=== PATIENT | male | born 1965 | race African-American/Black ===

== ENCOUNTER 2016-08-21 14:57 | Emergency (ER) | payer MEDICAID ==
[~2016-08-21] VITALS: Ht 177.8 cm; Wt 80.0 kg
[2016-08-21 14:59] VITALS: BP 103/57
== END 2016-08-21 19:32 | disposition left against medical advice (07) ==
LOC: ER 14:58
DX: M79.604 Pain in right leg (principal); F12.10 Cannabis abuse, uncomplicated; F15.10 Other stimulant abuse, uncomplicated; Z88.6 Allergy status to analgesic agent

== ENCOUNTER 2016-09-25 01:12 | Emergency (ER) | payer MEDICAID ==
[~2016-09-25] VITALS: Ht 170.2 cm; Wt 68.0 kg
[2016-09-25] MEDS ORDERED: ONDANSETRON HCL 4MG/2ML VIAL IV STA (02:30)
[2016-09-25] MEDS ORDERED: SODIUM CHLORIDE 0.9% 1,000 ML IV ONE (02:30)
[2016-09-25] MEDS ORDERED: MORPHINE SULFATE 2 MG/ML CPJ (NOT FOR IM USE) IV ONE (02:30)
[2016-09-25 02:59] LABS: BASOPHILS % 0.2 % (0.0-2.0); EOSINOPHILS % 0.5 % (0.0-5.0); HEMATOCRIT. 41.7 % (42.0-52.0); HEMOGLOBIN. 13.6 g/dL (14.0-18.0); LYMPHOCYTES % 10.2 % (20.0-50.0); MEAN CORPUSCULAR HEMOGLOBIN 30.3 pg (28.0-32.0); MEAN CORPUSCULAR HGB CONC 32.6 g/dL (31.0-37.0); MEAN CORPUSCULAR VOLUME 92.8 fL (80.0-94.0); MONOCYTES % 9.1 % (2.0-8.0); PLATELET 186 x1000/uL (130-400); RED BLOOD CELL COUNT 4.49 mill/uL (4.7-6.1); RED CELL DISTRIBUTION WIDTH 14.1 % (11.6-14.6)
[2016-09-25 03:09] LABS: ALANINE AMINOTRANSFERASE 29 IU/L (13-61); ALBUMIN 3.8 g/dL (3.4-5.0); ANION GAP 13; CALCIUM 8.7 mg/dL (8.5-10.1); CARBON DIOXIDE 26 mEq/L (21-32); CHLORIDE 106 mEq/L (98-107); ETHANOL BLOOD < 10 mg/dL; INDEX HEMOLYSI 3 (1-3); INDEX ICTERIC 1 (1-4); INDEX LIPEMIC 1 (1-3); LIPASE 92 IU/L (73-393); UREA NITROGEN BLOOD 21 mg/dL (7-21); eGFR > 60 mL/min (>60)
[2016-09-25 05:48] LABS: CLARITY URINE CLEAR (CLEAR); COLOR URINE YELLOW (YELLOW); GLUCOSE URINE NEGATIVE (NEGATIVE); KETONES URINE 1+ (NEGATIVE); LEUKOCYTE ESTERASE URINE NEGATIVE (NEGATIVE); NITRITE URINE NEGATIVE (NEGATIVE); OCCULT BLOOD URINE NEGATIVE (NEGATIVE); PROTEIN URINE TRACE (NEGATIVE); SPECIFIC GRAVITY URINE 1.027 (1.005-1.030)
[2016-09-25 06:02] LABS: *AMPHETAMINES SCREEN URINE PRESUMTIVE POSITIVE (NEGATIVE); *BARBITURATES SCREEN URINE NEGATIVE (NEGATIVE); *BENZODIAZEPINES SCREEN URINE NEGATIVE (NEGATIVE); *COCAINE SCREEN URINE NEGATIVE (NEGATIVE); CANNABINOID URINE SCREEN PRESUMTIVE POSITIVE (NEGATIVE); ECSTASY MDMA SCREEN URINE NEGATIVE (NEGATIVE); METHADONE URINE SCREEN NEGATIVE (NEGATIVE); OPIATES URINE SCREEN PRESUMTIVE POSITIVE (NEGATIVE); PHENCYCLIDINE URINE SCREEN NEGATIVE (NEGATIVE)
[2016-09-25 06:06] LABS: BACTERIA URINE NONE SEEN; RBC URINE 0-2 /hpf (0-2); SQUAMOUS EPITHELIAL CELL URINE FEW /lpf (RARE/1+); WBC URINE 0-2 /hpf (0-2)
[2016-09-25 06:28] VITALS: BP 127/65
== END 2016-09-25 07:00 | disposition home or self-care (01) ==
LOC: ER 01:12
DX: K52.9 Noninfective gastroenteritis and colitis, unspecified (principal); F19.10 Other psychoactive substance abuse, uncomplicated; F17.210 Nicotine dependence, cigarettes, uncomplicated; F15.10 Other stimulant abuse, uncomplicated; F12.10 Cannabis abuse, uncomplicated; Z88.0 Allergy status to penicillin; Z88.6 Allergy status to analgesic agent
CPT/HCPCS: 36415; 80053; 80305; 81001; 83690; 85025; 96361; 96374; 96375; 99285; G0482; J2270; J2405; J7030

== ENCOUNTER 2019-04-21 14:58 | Inpatient (IN) | payer MEDICAID, OTHER ==
[~2019-04-21] VITALS: Ht 175.3 cm; Wt 68.0 kg
[2019-04-21] MEDS ORDERED: SODIUM CHLORIDE 0.9% 1,000 ML IV ONE (15:45)
[2019-04-21] MEDS ORDERED: ONDANSETRON HCL 4MG/2ML INJ IV ONE (15:45)
[2019-04-21] MEDS ORDERED: MORPHINE SULFATE 4 MG/ML CPJ (NOT FOR IM USE) IV ONE (15:45)
[2019-04-21 16:27] LABS: BASOPHILS % 0.8 % (0.0-2.0); EOSINOPHILS % 4.9 % (0.0-5.0); HEMOGLOBIN. 13.3 g/dL (14.0-18.0); LYMPHOCYTES % 27.2 % (20.0-50.0); MEAN CORPUSCULAR HEMOGLOBIN 30.8 pg (28.0-32.0); MEAN CORPUSCULAR VOLUME 94.8 fL (80.0-94.0); MEAN PLATELET VOLUME 7.8 fl (7.4-10.4); MONOCYTES % 8.2 % (2.0-8.0); NEUTROPHILS % 58.9 % (40.0-76.0); PLATELET 265 x1000/uL (130-400); RED BLOOD CELL COUNT 4.32 mill/uL (4.7-6.1); RED CELL DISTRIBUTION WIDTH 14.9 % (11.6-14.6)
[2019-04-21 16:28] LABS: INR 0.9; PROTHROMBIN TIME 9.7 sec (9.6-11.0)
[2019-04-21 16:31] LABS: CHLORIDE 104 mEq/L (98-107)
[2019-04-21 18:05] LABS: CLARITY URINE CLEAR (CLEAR); COLOR URINE YELLOW (YELLOW); KETONES URINE NEGATIVE (NEGATIVE); LEUKOCYTE ESTERASE URINE NEGATIVE (NEGATIVE); NITRITE URINE NEGATIVE (NEGATIVE); OCCULT BLOOD URINE NEGATIVE (NEGATIVE); PROTEIN URINE NEGATIVE (NEGATIVE); SPECIFIC GRAVITY URINE 1.007 (1.005-1.030); UROBILINOGEN URINE 0.2 E.U./dL (0.2-1.0)
[2019-04-21] MEDS ORDERED: IOHEXOL-300 100 ML BOTTLE ONE (18:30)
[2019-04-21 22:10] VITALS: BP 118/71
[2019-04-21] MEDS ORDERED: MAGNESIUM CITRATE 300ML SOLUTION PO ONE (22:45)
[2019-04-21] MEDS ORDERED: MORPHINE SULFATE 2 MG/ML CPJ (NOT FOR IM USE) IV PRN (22:45)
[2019-04-21] MEDS ORDERED: ACETAMINOPHEN 325MG TABLET PO PRN (22:45)
[2019-04-21] MEDS ORDERED: POTASSIUM CHLORIDE 20MEQ TABLET SR PO NR (23:13)
[2019-04-22] VITALS: BP 125/73
[2019-04-22 04:00] VITALS: BP 128/72
[2019-04-22 07:14] LABS: BASOPHILS % 0.7 % (0.0-2.0); HEMATOCRIT. 39.7 % (42.0-52.0); HEMOGLOBIN. 13.2 g/dL (14.0-18.0); MEAN CORPUSCULAR HEMOGLOBIN 31.3 pg (28.0-32.0); MEAN PLATELET VOLUME 7.2 fl (7.4-10.4); MONOCYTES % 11.4 % (2.0-8.0); NEUTROPHILS % 58.9 % (40.0-76.0); PLATELET 266 x1000/uL (130-400); RED BLOOD CELL COUNT 4.22 mill/uL (4.7-6.1); RED CELL DISTRIBUTION WIDTH 15.3 % (11.6-14.6)
[2019-04-22 07:18] LABS: CHLORIDE 107 mEq/L (98-107)
[2019-04-22 08:00] VITALS: BP 111/65
[2019-04-22] MEDS ORDERED: MAGNESIUM CITRATE 300ML SOLUTION PO NR (08:00)
[2019-04-22] MEDS ORDERED: ENOXAPARIN 40MG/0.4ML SYR SUBCUT SCH (09:00)
[2019-04-22 12:00] VITALS: BP 107/71
[2019-04-22 13:22] VITALS: BP 107/71
== END 2019-04-22 14:10 | disposition home or self-care (01) | DRG 247 ==
LOC: ER 14:58 → 6EST 20:18 → EDBEDREQ 20:31 → EDBEDREQTM 20:31 → ENRESERV 21:24
PROVIDERS: ADMIT Internal Medicine; ATTEND Internal Medicine
DX: K56.41 Fecal impaction (principal); N28.1 Cyst of kidney, acquired; K52.9 Noninfective gastroenteritis and colitis, unspecified; Z87.01 Personal history of pneumonia (recurrent); Z88.0 Allergy status to penicillin; Z88.1 Allergy status to other antibiotic agents
CPT/HCPCS: 36415; 74177; 80048; 81003; 83605; 96374; 99285; J1650; J2270; J2405; J7030; Q9967

== ENCOUNTER 2023-06-19 14:18 | Emergency (ER) | payer OTHER ==
[~2023-06-19] VITALS: Ht 180.3 cm; Wt 80.0 kg
[2023-06-19 14:37] VITALS: BP 118/76; PULSE 72; RESP 16; TEMP 97.9; O2SAT 97
[2023-06-20] MEDS ORDERED: IBUP-2028 MT (01:04)
== END 2023-06-20 03:00 | disposition home or self-care (01) ==
LOC: ER 14:18
DX: M79.672 Pain in left foot (principal); Z87.19 Personal history of other diseases of the digestive system; F12.10 Cannabis abuse, uncomplicated
CPT/HCPCS: 73620; 99283

== ENCOUNTER 2025-04-13 15:36 | Emergency (ER) | payer OTHER ==
[~2025-04-13] VITALS: Ht 177.8 cm; Wt 72.0 kg
[~2025-04-13 15:36] MED LIST: SULF1TAB48 MT
[2025-04-13 15:52] VITALS: O2SAT 98
[2025-04-13] MEDS: SODIUM CHLORIDE 0.9% 1,000 ML IV ONE (16:30)
[2025-04-13 18:34] LABS: BASOPHILS % 0.4 % (0.0-2.0); EOSINOPHILS % 2.2 % (0.0-5.0); HEMATOCRIT. 27.8 % (42.0-52.0); HEMOGLOBIN. 8.9 g/dL (14.0-18.0); LYMPHOCYTES % 10.1 % (20.0-50.0); MEAN PLATELET VOLUME 6.5 fl (7.4-10.4); MONOCYTES % 9.1 % (2.0-8.0); NEUTROPHILS % 78.2 % (40.0-76.0); PLATELET 774 x1000/uL (130-400); RED BLOOD CELL COUNT 2.97 mill/uL (4.7-6.1); RED CELL DISTRIBUTION WIDTH 16.1 % (11.6-14.6)
[2025-04-13 18:51] LABS: INR 1.0
[2025-04-13 18:56] LABS: CREATININE 1.1 mg/dL (0.6-1.3)
[2025-04-13 18:57] LABS: ETHANOL BLOOD < 10 mg/dL (<10); PROTEIN TOTAL 6.5 g/dL (6.0-8.3); UREA NITROGEN BLOOD 20 mg/dL (9-23)
[2025-04-13 18:58] LABS: ASPARTATE AMINOTRANSFERASE 45 IU/L (<34); TROPONIN I HIGH SENSITIVITY < 4 ng/L (3.0-53)
[2025-04-13 18:59] LABS: BILIRUBIN DIRECT < 0.1 mg/dL (<=3.0); BILIRUBIN TOTAL 0.3 mg/dL (0.1-1.0)
[2025-04-13] MEDS ORDERED: MAGNESIUM/ALUMINUM HYDROXIDE/SIMETHICONE 30ML UDC PO PRN (20:30)
[2025-04-13] MEDS ORDERED: MORPHINE SULFATE 4 MG/ML INJ (FOR IV/IM USE) IV PRN (20:30)
[2025-04-13] MEDS ORDERED: ZOLPIDEM TARTRATE 5MG TABLET PO PRN (20:30)
[2025-04-13] MEDS ORDERED: ONDANSETRON HCL 4MG/2ML INJ IV PRN (20:30)
[2025-04-13] MEDS ORDERED: CLONIDINE 0.1MG TABLET PO PRN (20:30)
[2025-04-13] MEDS ORDERED: HYDROCODONE/ACETAMINOPHEN 5/325MG TABLET PO PRN (20:30)
[2025-04-13] MEDS ORDERED: ACETAMINOPHEN 325MG TABLET PO PRN (20:30)
[2025-04-13] MEDS ORDERED: ENOXAPARIN 40MG/0.4ML SYR SUBCUT SCH (21:00)
[2025-04-13 21:12] VITALS: TEMP 37.3; O2SAT 98
[2025-04-13 21:15] VITALS: BP 110/62; PULSE 82; RESP 16; TEMP 98.1
[2025-04-13 22:17] LABS: TROPONIN I HIGH SENSITIVITY < 4 ng/L (3.0-53)
[2025-04-14 01:19] LABS: INFLUENZA TYPE A Presumptive Negative (Pres. Neg.)
[2025-04-14 01:20] LABS: INFLUENZA TYPE B Presumptive Negative (Pres. Neg.)
[2025-04-14 01:21] LABS: RESPIRATORY SYNCYTIAL VIRUS Not Detected (Not Detectd)
[2025-04-14] MEDS ORDERED: PANTOPRAZOLE SODIUM 40 MG/VIAL IV SCH (09:00)
== END 2025-04-13 23:25 | disposition left against medical advice (07) ==
LOC: ER 15:36 → EDBEDREQTM 20:01 → EDBEDREQ 20:01 → ER 23:25 → CMPBEDREQ 04-15 07:55
DX: R10.84 Generalized abdominal pain (principal); R07.89 Other chest pain; F17.200 Nicotine dependence, unspecified, uncomplicated; R06.02 Shortness of breath; K52.9 Noninfective gastroenteritis and colitis, unspecified; K59.00 Constipation, unspecified; Z79.899 Other long term (current) drug therapy; Z88.0 Allergy status to penicillin; Z88.1 Allergy status to other antibiotic agents; Z88.6 Allergy status to analgesic agent; Z20.822 Contact with and (suspected) exposure to COVID-19
CPT/HCPCS: 80076; 80048; 80320; 83880; 83690; 83735; 85025; 85610; 87420; 84484; 87804 ×2; 36415; 71045; 74176; 93005; 96360; 99285; 87426; J7030; G0480

== ENCOUNTER 2025-04-28 18:49 | Emergency (ER) | payer OTHER ==
[~2025-04-28] VITALS: Ht 177.8 cm; Wt 68.0 kg
[2025-04-28 18:53] VITALS: O2SAT 99
[2025-04-28] MEDS: OXYCODONE HCL/ACETAMINOPHEN 5/325MG TABLET PO ONE (20:08)
[2025-04-28] MEDS ORDERED: TOPUD MT (21:08)
[2025-04-29 03:25] VITALS: BP 115/64; PULSE 72; RESP 16; TEMP 36.9; O2SAT 99
== END 2025-04-29 03:31 | disposition home or self-care (01) ==
LOC: ER 18:49
DX: M79.89 Other specified soft tissue disorders (principal); M25.552 Pain in left hip; F12.90 Cannabis use, unspecified, uncomplicated; Z96.649 Presence of unspecified artificial hip joint; Z88.6 Allergy status to analgesic agent; Z88.0 Allergy status to penicillin; Z88.1 Allergy status to other antibiotic agents
CPT/HCPCS: 73502; 99283

== ENCOUNTER 2025-05-23 21:50 | Emergency (ER) | payer OTHER ==
[~2025-05-23] VITALS: Ht 175.3 cm; Wt 74.0 kg
[~2025-05-23 21:50] MED LIST changes: +TOPUD MT
[2025-05-23 21:59] VITALS: O2SAT 96
[2025-05-23] MEDS: LIDOCAINE 5% PATCH TOP SCH (22:15)
[2025-05-23] MEDS ORDERED: HYDROCODONE/ACETAMINOPHEN 5/325MG TABLET PO ONE (23:45)
[2025-05-24] MEDS: HYDROCODONE/ACETAMINOPHEN 5/325MG TABLET PO NR (01:16)
[2025-05-24] MEDS ORDERED: ACET-2708 MT (01:47)
[2025-05-24] MEDS ORDERED: BACL-141 MT (02:12)
[2025-05-24 02:30] VITALS: BP 115/66; PULSE 55; RESP 13; TEMP 36.5; O2SAT 99
== END 2025-05-24 02:50 | disposition home or self-care (01) ==
LOC: ER 21:50
DX: M25.552 Pain in left hip (principal); Z59.00 Homelessness unspecified; Z88.0 Allergy status to penicillin; Z88.1 Allergy status to other antibiotic agents; Z88.6 Allergy status to analgesic agent; Z96.642 Presence of left artificial hip joint
CPT/HCPCS: 73502; 99283